=== PATIENT | female | born 1945 | race Hispanic/Latino ===

== ENCOUNTER → 2024-12-19 | Outpatient (REF) | payer OTHER | LOC: MAMMO 11:09 | PROVIDERS: ATTEND Family Medicine Obesity Medicine | DX: Z12.31 Encounter for screening mammogram for malignant neoplasm of breast (principal); M85.88 Other specified disorders of bone density and structure, other site; Z78.0 Asymptomatic menopausal state | CPT/HCPCS: 77067; 77080 ==